=== PATIENT | male | born 1970 | race Caucasian/White ===

== ENCOUNTER 2022-06-16 20:52 | Emergency (ER) | payer MEDICAID, OTHER ==
[~2022-06-16] VITALS: Ht 180.3 cm; Wt 139.0 kg
[2022-06-16 21:15] VITALS: BP 196/100
[2022-06-16 21:21] LABS: BASOPHILS # (AUTO) 0.2 X10'3 (0-0.2); BASOPHILS % (AUTO) 1.7 % (0-1); EOSINOPHILS # (AUTO) 0.2 X10'3 (0-0.9); EOSINOPHILS % (AUTO) 1.8 % (0-6); HEMATOCRIT 45.5 % (42.0-52.0); HEMOGLOBIN 14.5 g/dl (14.0-17.9); MEAN CORPUSCULAR VOLUME 75.2 FL (78-98); MEAN PLATELET VOLUME 10.4 FL (7.4-10.4); MONOCYTES # (AUTO) 0.9 X10'3 (0-0.9); MONOCYTES % (AUTO) 8.5 % (2-12); NEUTROPHILS # (AUTO) 7.8 X10'3 (1.8-7.7); PLATELET COUNT 232 X10'3 (140-440); RED BLOOD COUNT 6.05 X10'6 (4.70-6.10); RED CELL DISTRIBUTION WIDTH 13.7 % (11.5-14.5); WHITE BLOOD COUNT 11.1 X10'3 (4.5-11.0)
[2022-06-16 21:34] LABS: ALANINE AMINOTRANSFERASE 65 U/L (12-78); ALBUMIN 3.3 G/DL (3.4-5.0); ALBUMIN/GLOBULIN RATIO 0.8 (1.1-1.5); ALKALINE PHOSPHATASE 108 IU/L (46-116); ANION GAP 11 (8-16); ASPARTATE AMINO TRANSFERASE 55 U/L (10-37); BILIRUBIN,TOTAL 0.3 MG/DL (0.1-1.0); BLOOD UREA NITROGEN 9 MG/DL (7-18); BUN/CREATININE RATIO 6.5 (10.0-20.0); CALCIUM 8.8 MG/DL (8.5-10.1); CHLORIDE 90 MMOL/L (99-107); CREATININE 1.39 MG/DL (0.60-1.10); LIPASE 140 U/L (73-393); POTASSIUM 4.3 MMOL/L (3.5-5.1); SODIUM 129 MMOL/L (135-145); TOTAL PROTEIN 7.3 G/DL (6.4-8.2); eGFR 54 ML/MIN
[2022-06-16 21:55] LABS: CLARITY,URINE CLEAR (Clear); COLOR,URINE STRAW (Yellow); GLUCOSE, URINE >=1000 mg/dl (Neg); KETONES,URINE 15 mg/dl (Neg); LEUKOCYTE ESTERASE ,URINE NEGATIVE (Neg); NITRITES, URINE NEGATIVE (Neg); OCCULT BLOOD,URINE NEGATIVE (Neg); PROTEIN,URINE NEGATIVE (Neg); UROBILINOGEN,URINE 0.2 E.U/dL (0.2-1.0)
[2022-06-16 22:03] LABS: UA COLLECTION TYPE CLN CATCH MIDSTREAM
[2022-06-16 22:04] LABS: BACTERIA,URINE NONE SEEN /HPF (Neg); MUCUS STRANDS NONE SEEN /LPF (Neg); RBC,URINE 0-2 /HPF (0-2); SQUAMOUS EPITHELIAL CELL,UR FEW /LPF (FEW); WBC,URINE 0-4 /HPF (0-4)
[2022-06-16 22:07] LABS: GLUCOSE 788 MG/DL (70-104)
[2022-06-16] MEDS ORDERED: normal saline 1000ml 1,000 ML IV ONE ×2 (22:10→22:55)
[2022-06-16] MEDS ORDERED: ondansetron/PF 4mg/2ml inj IV ONE (22:55)
[2022-06-16] MEDS ORDERED: insulin regular, human 10 units/0.1 ml syringe IV ONE (22:55)
[2022-06-16] MEDS ORDERED: METF-900 PO (23:26)
[2022-06-16] MEDS ORDERED: ONDA4TAB12 PO (23:26)
[2022-06-16] MEDS ORDERED: LOPE1TAB46 PO (23:26)
== END 2022-06-17 01:35 | disposition home or self-care (01) ==
LOC: ER 20:52
DX: E11.65 Type 2 diabetes mellitus with hyperglycemia (principal); R11.2 Nausea with vomiting, unspecified; Z79.899 Other long term (current) drug therapy
CPT/HCPCS: 80053; 81001; 82948; 83690; 85025; 96361; 96374; 96375; 99284; J1815; J2405; J7030

== ENCOUNTER 2022-10-28 17:35 | Emergency (ER) | payer MEDICAID ==
[~2022-10-28] VITALS: Ht 180.3 cm; Wt 154.6 kg
[~2022-10-28 17:35] MED LIST: LOPE1TAB46 PO; ONDA4TAB12 PO
[2022-10-28] MEDS ORDERED: HYDROcodone/acetaminophen 10/325mg tab PO ONE (18:55)
[2022-10-28 19:05] VITALS: BP 164/84; PULSE 86; RESP 18; TEMP 99.5; O2SAT 96
[2022-10-28] MEDS ORDERED: IBUP-1986 PO (19:56)
[2022-10-28] MEDS ORDERED: CYCL-1 PO (19:56)
== END 2022-10-28 20:22 | disposition home or self-care (01) ==
LOC: ER 17:36
DX: S93.401A Sprain of unspecified ligament of right ankle, initial encounter (principal); I10 Essential (primary) hypertension; E11.9 Type 2 diabetes mellitus without complications; Z79.899 Other long term (current) drug therapy; V87.7XXA Person injured in collision between other specified motor vehicles (traffic), initial encounter; Y93.89 Activity, other specified; Y92.89 Other specified places as the place of occurrence of the external cause; Y99.8 Other external cause status
CPT/HCPCS: 29515; 73610; 99283; L4360; 29405